=== PATIENT | male | born 1960 | race Caucasian/White ===

== ENCOUNTER 2019-07-11 05:59 | Emergency (ER) | payer OTHER ==
[~2019-07-11] VITALS: Ht 180.3 cm; Wt 72.6 kg
== END 2019-07-11 15:13 | disposition home or self-care (01) ==
LOC: ER 05:59
DX: J06.9 Acute upper respiratory infection, unspecified (principal)

== ENCOUNTER 2020-10-18 13:03 | Emergency (ER) | payer OTHER ==
[~2020-10-18] VITALS: Ht 180.3 cm; Wt 72.6 kg
== END 2020-10-18 14:59 | disposition home or self-care (01) ==
LOC: ER 13:03
DX: R00.2 Palpitations (principal)

== ENCOUNTER 2021-03-19 01:06 | Emergency (ER) | payer OTHER ==
[~2021-03-19] VITALS: Ht 180.3 cm; Wt 71.2 kg
[2021-03-19] MEDS ORDERED: PHENAGIL TABLE1 EACH PO (03:36)
[2021-03-19] MEDS ORDERED: ZYNCOF 20-400120 ML PO (03:36)
== END 2021-03-19 03:42 ==
LOC: ER 01:06
DX: J06.9 Acute upper respiratory infection, unspecified (principal); Z20.822 Contact with and (suspected) exposure to COVID-19

== ENCOUNTER 2022-07-05 08:46 | Emergency (ER) | payer OTHER ==
[~2022-07-05] VITALS: Ht 180.3 cm; Wt 69.4 kg
[~2022-07-05 08:46] MED LIST: PHENAGIL TABLE1 EACH PO; ZYNCOF 20-400120 ML PO
== END 2022-07-05 10:28 | disposition home or self-care (01) ==
LOC: ER 08:46
DX: U07.1 COVID-19 (principal)

== ENCOUNTER 2023-01-11 10:19 | Emergency (ER) | payer OTHER ==
[~2023-01-11] VITALS: Ht 180.3 cm; Wt 69.4 kg
[2023-01-11] MEDS ORDERED: TUSNEL LIQUID178 ML PO (12:26)
[2023-01-11] MEDS ORDERED: ZYRTEC10 M3 PO (12:26)
[2023-01-11] MEDS ORDERED: DOLOGEN CAPLET1 EACH PO (12:26)
== END 2023-01-11 12:43 | disposition home or self-care (01) ==
LOC: ER 10:19
DX: B34.9 Viral infection, unspecified (principal); Z20.822 Contact with and (suspected) exposure to COVID-19